=== PATIENT | female | born 1930 | race Caucasian/White ===

== ENCOUNTER → 2019-11-01 | Outpatient (CLI) | payer MEDICARE ==
[~2019-11-01] MED LIST: APAP650 PO; ASPIRIN325 PO; CALCIUM 600 +1 EAC1 PO; CARDIZEM LA180 M1 PO; CARVEDILOL12.5 MG PO; CARVEDILOL25 MG PO; CENTRUM SILVER1 EAC4 PO; DIFLUCAN200 MG PO; FISH OIL 1,001000 M2 PO; FLECAINIDE ACE100 MG PO; FLECAINIDE ACET50 M1 PO; LAMISIL250 MG; LISINOPRIL-HCT1 EAC1 PO; LISINOPRIL-HCT1 EACH PO; OMEGA-31000 M1 PO; ONDANSETRON HCL4 M2 PO; OXYCODONE HCL 55 MG PO; TRIAMCINOLONE A80 G2 TOP; VITAMIN D2000 UNIT PO; VITAMIN E PO; VITAMIN E400 UNIT PO; VITAMINC500 PO; XARELTO10 MG PO; XARELTO15 MG PO; ZANTAC 150MG T150 MG PO
--- NOTE | ~2019-11-01 | CARD ---
[address] [address] CARDIAC CATH REPORT Name: MOIRA GARCIA Room: [facility]#: [id number] Admission: 11/01/19 Attend Phys: Sd Osorio MD Discharge: Date of : 34 Report #: [id number] THIS REPORT FOR: //name// cc: Daniel Nguyễn MD, Daljeet MD ~ THIS REPORT FOR: //name// CC: Daniel Osorio DATE OF SERVICE: 11/01/2019 PROCEDURE: DC cardioversion. INDICATION: Persistent atrial fibrillation. DESCRIPTION OF PROCEDURE: After informed consent was obtained, the patient was given intravenous Versed and fentanyl for moderate sedation. Once the patient was adequately sedated, she received a single biphasic shock of 300 joules converting to normal sinus rhythm. The patient tolerated the procedure well and without complication. IMPRESSION: 1. Persistent atrial fibrillation. 2. Successful direct current cardioversion to normal sinus rhythm. By: [id number] Renata Osorio MD, FACC /nt
[2019-11-01 10:31] VITALS: BP 171/81
[2019-11-01 10:39] VITALS: BP 179/81
[2019-11-01 10:46] VITALS: BP 179/81
[2019-11-01 10:51] VITALS: BP 153/64
== END | disposition home or self-care (01) ==
LOC: M.CL 10:04
DX: I48.19 Other persistent atrial fibrillation (principal); R00.1 Bradycardia, unspecified; Z98.890 Other specified postprocedural states; Z79.899 Other long term (current) drug therapy; Z87.01 Personal history of pneumonia (recurrent); Z88.8 Allergy status to other drugs, medicaments and biological substances

== ENCOUNTER 2019-11-03 10:26 | Inpatient (IN) | payer MEDICARE ==
[~2019-11-03] VITALS: Ht 154.9 cm; Wt 80.1 kg
[~2019-11-03 10:26] MED LIST changes: -CARDIZEM LA180 M1 PO; -FLECAINIDE ACE100 MG PO; -XARELTO15 MG PO
[2019-11-03 10:33] VITALS: BP 112/89
[2019-11-03] MEDS ORDERED: CARDIZEM LA180 M1 PO (10:54)
[2019-11-03] MEDS ORDERED: FLECAINIDE ACE100 MG PO (10:56)
[2019-11-03 11:06] LABS: HEMATOCRIT 36.5 % (37.0-47.0); MCH 29.6 pg (26.0-34.0); MCHC 32.8 g/dL (28.0-37.0); MCV 90.1 fL (80.0-100.0); MPV 7.9 fl. (7.2-11.1); NUCLEATED RBCS 0 /100WBC; PLATELET COUNT* 323 thou/uL (150-400); RBC 4.05 mil/uL (4.20-5.00); RDW-CV 13.7 % (10.5-14.5); WBC 21.8 thou/uL (4.0-11.0)
[2019-11-03 11:14] LABS: APTT 34.8 Seconds (25.0-31.3); INR 1.2; PROTIME 12.5 Seconds (9.20-11.50)
[2019-11-03 11:16] LABS: POTASSIUM 3.9 mmol/L (3.5-5.1)
[2019-11-03 11:28] LABS: ABSOLUTE LYMPHOCYTES 1.7 thou/uL (0.8-5.3); ABSOLUTE MONOCYTES 1.5 thou/uL (0.0-1.2); ABSOLUTE NEUTROPHILS 18.5 thou/uL (1.6-8.1); ALBUMIN 3.5 g/dL (3.4-5.0); ANISOCYTOSIS 1+; MAGNESIUM 1.4 mg/dL (1.8-2.4); PLATELET ESTIMATE ADEQUATE; POIKILOCYTOSIS 1+; TOTAL BILIRUBIN 0.7 mg/dL (<0.1-1.0); TOTAL PROTEIN 7.2 g/dL (6.4-8.2)
[2019-11-03 16:47] VITALS: BP 127/71
[2019-11-03 17:44] VITALS: BP 137/72
[2019-11-03 20:00] VITALS: BP 124/49
[2019-11-03] MEDS ORDERED: XARELTO15 MG PO (21:18)
[2019-11-04] VITALS (30 sets, daily range): BP systolic 75–174; BP diastolic 30–140
[2019-11-04 04:43] LABS: HEMATOCRIT 33.6 % (37.0-47.0); HEMOGLOBIN 11.2 gm/dL (12.0-15.0); MCH 29.8 pg (26.0-34.0); MCHC 33.3 g/dL (28.0-37.0); MCV 89.3 fL (80.0-100.0); MPV 8.3 fl. (7.2-11.1); RBC 3.76 mil/uL (4.20-5.00); RDW-CV 14.1 % (10.5-14.5); WBC 18.1 thou/uL (4.0-11.0)
[2019-11-04 05:07] LABS: ALBUMIN 3.1 g/dL (3.4-5.0); CALCIUM 8.9 mg/dL (8.5-10.1); CREATININE 1.1 mg/dL (0.6-1.3); MAGNESIUM 1.6 mg/dL (1.8-2.4); POTASSIUM 3.3 mmol/L (3.5-5.1); TOTAL BILIRUBIN 0.4 mg/dL (<0.1-1.0); TOTAL PROTEIN 6.8 g/dL (6.4-8.2)
--- NOTE | 2019-11-04 12:16 | EKG ---
[place] [address] ELECTROCARDIOGRAM REPORT Name: MOIRA GARCIA Room: [address] IN [facility]#: [id number] Admission: 11/03/19 Attend Phys: Shannan Carroll, Discharge: Date of : 34 Date of Service: 11/03/19 1032 Report #: [id number] THIS REPORT FOR: //name// [facility] ED Test Date: 2019-11-03 Test Time: 10:32:16 Pat Name: MOIRA GARCIA Department: Room: [facility] Gender: F Button Pusher: [facility] : 1930 Requested By: Scot Garsia Order Number: [id number] MD: Duc Bernardo Measurements Intervals [place] Rate: 77 P: 176 UT: 260 QRS: 262 QRSD: 158 T: 59 QT: 439 QTc: 497 Interpretive Statements Sinus or ectopic atrial rhythm prolonged pr interval LBBB left axis Electronically Signed On 11-04-2019 12:15:48 DIGITAL PRODUCT MANAGER by Duc Bernardo [email or web address] <ELECTRONICALLY SIGNED> By: Duc Bernardo MD, [facility] 11/04/19 1215 1032 1032 Duc Bernardo MD, [facility] /EPI
--- NOTE | 2019-11-04 12:17 | EKG ---
[place] [address] ELECTROCARDIOGRAM REPORT Name: MOIRA GARCIA Room: [address] ADM IN [facility]#: [id number] Admission: 11/03/19 Attend Phys: Shannan Carroll, Discharge: Date of : 34 Date of Service: 11/03/19 1036 Report #: [id number] THIS REPORT FOR: //name// [facility] ED Test Date: 2019-11-03 Test Time: 10:36:06 Pat Name: MOIRA GARCIA Department: Room: [facility] Gender: F Corporate Webmaster: [facility] : 1930 Requested By: Scot Garsia Order Number: [id number] MD: Duc Bernardo Measurements Intervals [place] Rate: 74 P: 36 ND: 248 QRS: -81 QRSD: 162 T: 113 QT: 461 QTc: 512 Interpretive Statements Sinus rhythm Prolonged ND interval left axis LBBB Electronically Signed On 11-04-2019 12:16:47 COURSEWARE DEVELOPER by Duc Bernardo [email or web address] <ELECTRONICALLY SIGNED> By: Duc Bernardo MD, [facility] 11/04/19 1216 1036 1036 Duc Bernardo MD, [facility] /EPI
[2019-11-04 16:44] LABS: ALBUMIN 2.6 g/dL (3.4-5.0); CREATININE 1.8 mg/dL (0.6-1.3); MAGNESIUM 1.9 mg/dL (1.8-2.4); TOTAL BILIRUBIN 0.3 mg/dL (<0.1-1.0); TOTAL PROTEIN 5.6 g/dL (6.4-8.2)
[2019-11-04 16:45] LABS: CALCIUM 10.9 mg/dL (8.5-10.1); POTASSIUM 4.6 mmol/L (3.5-5.1)
[2019-11-05] VITALS (59 sets, daily range): BP systolic 67–144; BP diastolic 35–98
[2019-11-05 04:07] LABS: GLYCOHEMOGLOBIN (HGB A1C) 6.6 % (4.8-5.6)
--- NOTE | 2019-11-05 13:37 | 2DMMODE ---
[place] [address] 2 D/M-MODE ECHOCARDIOGRAM Name: MOIRA GARCIA Room: [address] IN [facility]#: [id number] Admission: 11/03/19 Attend Phys: Shannan Carroll, Discharge: Date of : 34 Date of Service: 11/05/19 1336 Report #: [id number] THIS REPORT FOR: cc: Daniel Nguyễn MD, Daljeet MD Blick,Duc Garcia MD [facility] ~ ADDENDUM APPROVED REPORT Study performed: 11/05/2019 09:57:06 EXAM: Limited 2D Echocardiogram Patient Location: In-Patient Room #: 001 Status: routine BSA: 1.76 HR: 68 bpm BP: 126/49 mmHg Rhythm: NSR Other Information Study Quality: Good Indications Re evaluate EF Left Ventricle The left ventricle is normal size. paradoxical septal motion consistent with a LBBB Mild concentric left ventricular hypertrophy. The left ventricular systolic function is normal. The left ventricular ejection fraction is within the normal range. LVEF is 50-55%. Right Ventricle The right ventricle is normal size. The right ventricular systolic function is normal. Atria Left atrium is moderately dilated. The right atrium size is normal. Aortic Valve Mild aortic valve sclerosis. Mitral Valve There is mitral annular calcification. [address] [address] 2 D/M-MODE ECHOCARDIOGRAM Name: MOIRA GARCIA Room: [address] IN M.R.#: [id number] Admission: 11/03/19 Attend Phys: Shannan Carroll, Discharge: Date of : 34 Date of Service: 11/05/19 1336 Report #: [id number] Tricuspid Valve The tricuspid valve is normal in structure. Pulmonic Valve The pulmonary valve is normal in structure. Great Vessels The aortic root is normal in size. Pericardium There is no pericardial effusion. Left pleural effusion. <Conclusion> Mild concentric left ventricular hypertrophy. LVEF is 50-55%. Left atrium is moderately dilated. Mild aortic valve sclerosis. . <ELECTRONICALLY SIGNED> By: Duc Bernardo MD, FACC 11/05/19 1336 35 35 Duc Bernardo MD, FACC /INF
--- NOTE | 2019-11-05 15:25 | EKG ---
[place] [address] ELECTROCARDIOGRAM REPORT Name: MOIRA GARCIA Room: [address] ADM IN ..#: [id number] Admission: 11/03/19 Attend Phys: Shannan Carroll, Discharge: Date of : 34 Date of Service: 11/04/19 1527 Report #: [id number] THIS REPORT FOR: //name// [facility] Test Date: 2019-11-04 Test Time: 15:27:24 Pat Name: MOIRA GARCIA Department: Room: [facility] Gender: F Publications Production Supervisor: UNKNOWN : 1930 Requested By: Son Mccormick Order Number: [id number] Marybeth MD: Duc Bernardo Measurements Intervals [place] Rate: 39 P: [place]: QRS: -81 QRSD: 154 T: 147 QT: 654 QTc: 527 Interpretive Statements Junctional rhythm with pac left axis LBBB Compared to ECG 11/03/2019 10:36:06 Junctional rhythm now present Sinus rhythm no longer present Electronically Signed On 11-05-2019 15:24:55 PSYCHOLOGY PHYSICIAN by Duc Bernardo [email or web address] <ELECTRONICALLY SIGNED> By: Duc Bernardo MD, [facility] 11/05/19 1524 1527 1527 Duc Bernardo MD, [facility] /EPI
--- NOTE | 2019-11-05 17:21 | CON ---
[address] [address] CONSULTATION Name: MOIRA GARCIA Room: [address] IN M.R.#: [id number] Admission: 11/03/19 Attend Phys: Shannan Carroll MD Discharge: Date of : 34 Report #: [id number] THIS REPORT FOR: //name// cc: Daniel Nguyễn MD, Daljeet MD ~ THIS REPORT FOR: //name// CC: Daniel Osorio DATE OF SERVICE: 11/05/2019 CARDIOLOGY CONSULTATION HISTORY OF PRESENT ILLNESS: The patient is an 88-year-old white female who I was asked to see in the hospital today after she was noted to be bradycardic. The history was obtained from the patient as well as some old records. The patient has a history of paroxysmal atrial fibrillation. She has been followed by my partner, Dr. Osorio. Because of recurrent atrial fibrillation, she was actually cardioverted as an outpatient 5 days ago here at [facility] by Dr. Osorio. He apparently started her on Xarelto for anticoagulation and flecainide. She was at home last . However, that night, she could sleep and felt short of breath. The next day, she called my office and apparently Dr. Osorio's nurse told the patient to increase flecainide to 100 mg twice a day. However, she continued not to feel well. She felt lightheaded. She finally went to the Emergency Room 2 days ago. She noted some chest discomfort that went into her back. She felt short of breath. She was admitted to [facility] 2 days ago. On admission, her ECG showed a sinus rhythm with first-degree AV block. On the monitor, the patient developed bradycardia with what appears to be sinus bradycardia, PACs, long first-degree AV block. She also had episodes of junctional rhythm with rates down into the 30s. Because of this, the patient was transferred to the ICU yesterday. She had occasional PVCs. Because of low blood pressure, she was started on dopamine. I was asked to see her for further evaluation and treatment. She denied any syncopal spells or edema. PAST MEDICAL HISTORY: She has had tonsillectomy, mastoid surgery, cataract extraction, hip surgery. She has a history of hypertension, umbilical hernia repair. MEDICATIONS: On admission 2 days ago included flecainide 100 mg twice a day, diltiazem CD 180 mg a day, ranitidine 150 mg as needed, carvedilol 25 mg twice a day, lisinopril HCT 20/12.5 a [place] [address] CONSULTATION Name: MOIRA GARCIA Room: [address] IN ..#: [id number] Admission: 11/03/19 Attend Phys: Shannan Carroll MD Discharge: Date of : 34 Report #: [id number] ALLERGIES: She has previous intolerance to Lamisil. FAMILY HISTORY: Negative for heart disease. SOCIAL HISTORY: She is . [place]. No smoking or alcohol abuse. REVIEW OF SYSTEMS: She was told in the past she may have had a stroke when she had some confusion. She has no history of asthma, liver disease, kidney disease, cancer, chronic skin condition. She does have occasional edema. No chronic psychiatric illness. PHYSICAL EXAMINATION: GENERAL: Reveal an elderly, frail appearing female who appeared in no distress, lying in bed. VITAL SIGNS: She had a blood pressure of 110/60, pulse 70. She is afebrile. HEENT: She was anicteric. Conjunctivae are pink. Mucous membranes appear dry. NECK: Veins are nondistended. CHEST: Clear to auscultation. CARDIOVASCULAR: Regular rate and rhythm, no murmur. ABDOMEN: Soft. EXTREMITIES: Had no edema. Dorsalis pedis pulse cannot be palpated. SKIN: Cool and dry. NEUROLOGIC: Nonfocal. LABORATORY AND DIAGNOSTIC DATA: Her ECG on admission 2 days ago showed sinus rhythm, first degree AV block, left axis deviation and a left bundle branch block. Her workup included a chest x-ray on admission that showed atelectasis. CT scan of the chest using a PE protocol showed no pulmonary embolus, small effusions. CT scan of the head without contrast because of confusion showed poor study. No acute abnormalities. Her laboratory: Sodium 136, BUN 38, creatinine 1.8, glucose 309, SGOT 151, SGPT 89, bilirubin 0.3, alkaline phosphatase 73, albumin 2.6. Troponin 0.22, it was 0.5 two days ago. BNP 17,939. Glycosylated hemoglobin 6.6 consistent with glucose intolerance. White blood cell count 18.1, hemoglobin 11.2, hematocrit 33.6. IMPRESSION AND RECOMMENDATIONS: 1. Sinus bradycardia. I would recommend stopping diltiazem and Cardizem. If persist, she would require pacemaker. 2. Paroxysmal atrial fibrillation. The patient now on flecainide. No evidence of clinical recurrences after increasing the dose to 100 mg twice a day. Because of chronic kidney disease, I would consider decreasing the dose to 50 mg. 3. Hypertension. The patient on calcium colton and beta colton. 4. Obesity. 5. [place] [address] CONSULTATION Name: MOIRA GARCIA Room: [address] IN .R.#: [id number] Admission: 11/03/19 Attend Phys: Shannan Carroll MD Discharge: Date of : 34 Report #: [id number] 6. Glucose intolerance. Suspect diabetes. 7. Elevated liver function studies. <ELECTRONICALLY SIGNED> By: Duc Bernardo MD, FACC 11/05/19 1721 0801 1023Dsaray Bernardo MD, FACC /nt
[2019-11-06] VITALS (23 sets, daily range): BP systolic 113–176; BP diastolic 56–99
[2019-11-06 03:55] LABS: HEMATOCRIT 32.9 % (37.0-47.0); HEMOGLOBIN 10.9 gm/dL (12.0-15.0); MCH 29.8 pg (26.0-34.0); MCV 90.1 fL (80.0-100.0); MPV 8.1 fl. (7.2-11.1); RBC 3.65 mil/uL (4.20-5.00); WBC 11.5 thou/uL (4.0-11.0)
[2019-11-06 04:00] LABS: ALBUMIN 2.8 g/dL (3.4-5.0); CREATININE 1.2 mg/dL (0.6-1.3); POTASSIUM 3.5 mmol/L (3.5-5.1); TOTAL BILIRUBIN 0.2 mg/dL (<0.1-1.0); TOTAL PROTEIN 6.3 g/dL (6.4-8.2)
[2019-11-06 04:01] LABS: CALCIUM 8.8 mg/dL (8.5-10.1)
[2019-11-06 05:48] LABS: pH 7.318 (7.340-7.450)
[2019-11-06 05:49] LABS: BE 0.1 mmol/L (-2 to +3)
[2019-11-06 05:53] LABS: PCO2 53.9 mmHg (35.0-45.0); PO2 28.8 mmHg (75.0-100.0)
--- NOTE | 2019-11-06 16:46 | EKG ---
[place] [address] ELECTROCARDIOGRAM REPORT Name: MOIRA GARCIA Room: [address] IN ..#: [id number] Admission: 11/03/19 Attend Phys: Shannan Carroll, Discharge: Date of : 34 Date of Service: 11/06/19 0835 Report #: [id number] THIS REPORT FOR: //name// [facility] Test Date: 2019-11-06 Test Time: 08:35:26 Pat Name: MOIRA GARCIA Department: Room: [address] Gender: F Office Associate: : 1930 Requested By: Duc Bernardo Order Number: [id number] Reading MD: Duc Bernardo Measurements Intervals [place] Rate: 74 P: 96 [place]: 245 QRS: -83 QRSD: 156 T: 99 QT: 439 QTc: 487 Interpretive Statements Sinus rhythm with pac's Prolonged [place] interval LBBB left axis Compared to ECG 11/04/2019 15:27:24 Junctional rhythm no longer present Electronically Signed On 11-06-2019 16:45:37 STRAPPER OPERATOR by Duc Bernardo [email or web address] <ELECTRONICALLY SIGNED> By: Duc Bernardo MD, [facility] 11/06/19 1645 0835 0835 Duc Bernardo MD, [facility] /EPI
[2019-11-07 03:43] LABS: HEMATOCRIT 33.9 % (37.0-47.0); HEMOGLOBIN 11.4 gm/dL (12.0-15.0); MCH 30.2 pg (26.0-34.0); MCHC 33.6 g/dL (28.0-37.0); MCV 89.8 fL (80.0-100.0); MPV 7.9 fl. (7.2-11.1); RBC 3.78 mil/uL (4.20-5.00); RDW-CV 13.8 % (10.5-14.5); WBC 10.6 thou/uL (4.0-11.0)
[2019-11-07 03:52] LABS: ALBUMIN 2.7 g/dL (3.4-5.0); CALCIUM 8.4 mg/dL (8.5-10.1); CREATININE 0.9 mg/dL (0.6-1.3); MAGNESIUM 1.7 mg/dL (1.8-2.4); POTASSIUM 3.4 mmol/L (3.5-5.1); TOTAL BILIRUBIN 0.3 mg/dL (<0.1-1.0); TOTAL PROTEIN 6.1 g/dL (6.4-8.2)
[2019-11-07 04:18] VITALS: BP 132/66
[2019-11-07 07:32] VITALS: BP 164/83
[2019-11-07 12:48] VITALS: BP 147/85
[2019-11-07 18:10] VITALS: BP 114/70
[2019-11-07 20:00] VITALS: BP 127/68
[2019-11-08] VITALS (7 sets, daily range): BP systolic 139–153; BP diastolic 71–86
[2019-11-08 04:58] LABS: HEMATOCRIT 35.2 % (37.0-47.0); HEMOGLOBIN 11.6 gm/dL (12.0-15.0); MCH 29.8 pg (26.0-34.0); MCHC 33.1 g/dL (28.0-37.0); MCV 90.1 fL (80.0-100.0); MPV 7.8 fl. (7.2-11.1); RBC 3.91 mil/uL (4.20-5.00); RDW-CV 13.9 % (10.5-14.5); WBC 10.5 thou/uL (4.0-11.0)
[2019-11-08 05:26] LABS: CALCIUM 8.1 mg/dL (8.5-10.1); CREATININE 0.7 mg/dL (0.6-1.3); MAGNESIUM 1.9 mg/dL (1.8-2.4); POTASSIUM 4.2 mmol/L (3.5-5.1)
[2019-11-09] VITALS (7 sets, daily range): BP systolic 126–186; BP diastolic 64–117
[2019-11-10 04:18] VITALS: BP 153/82
[2019-11-10] MEDS ORDERED: LISINOPRIL20 MG PO (10:48)
[2019-11-10] MEDS ORDERED: GLUCOPHAGE500 MG PO (10:48)
[2019-11-10] MEDS ORDERED: PEPCID20 MG PO (10:48)
[2019-11-10] MEDS ORDERED: FELODIPINE 5 MG5 M1 PO (10:48)
[2019-11-10] MEDS ORDERED: FISH OIL 1,001000 M2 PO (10:48)
[2019-11-10] MEDS ORDERED: PROAIR HFA8.5 GM INH (10:50)
[2019-11-10] MEDS ORDERED: LASIX 40 MG TAB40 MG PO (10:51)
[2019-11-10 11:57] VITALS: BP 153/74
[2019-11-12 11:40] VITALS: BP 186/117
== END 2019-11-10 17:45 | disposition home health service (06) | DRG 291 ==
LOC: M.ERS 10:26 → M.TBA-ER 13:22 → M.ICU 13:22 → M.2W 13:22 → M.ICU 11-04 15:45 → M.2W 11-07 12:19
PROVIDERS: Family Medicine; Internal Medicine; ADMIT Internal Medicine
DX: I13.0 Hypertensive heart and chronic kidney disease with heart failure and stage 1 through stage 4 chronic kidney disease, or unspecified chronic kidney disease (principal); J18.9 Pneumonia, unspecified organism; J96.01 Acute respiratory failure with hypoxia; I50.31 Acute diastolic (congestive) heart failure; G92 Toxic encephalopathy; R65.11 Systemic inflammatory response syndrome (SIRS) of non-infectious origin with acute organ dysfunction; R00.1 Bradycardia, unspecified; E11.9 Type 2 diabetes mellitus without complications; E66.9 Obesity, unspecified; I48.0 Paroxysmal atrial fibrillation; M19.90 Unspecified osteoarthritis, unspecified site; E11.22 Type 2 diabetes mellitus with diabetic chronic kidney disease; N18.9 Chronic kidney disease, unspecified; Z79.899 Other long term (current) drug therapy; Z68.33 Body mass index [BMI] 33.0-33.9, adult; Z79.01 Long term (current) use of anticoagulants; Z88.8 Allergy status to other drugs, medicaments and biological substances

== ENCOUNTER → 2019-11-19 | Outpatient (CLI) | payer MEDICARE ==
[~2019-11-19] MED LIST changes: +CARDIZEM LA180 M1 PO; +FELODIPINE 5 MG5 M1 PO; +FLECAINIDE ACE100 MG PO; +GLUCOPHAGE500 MG PO; +LASIX 40 MG TAB40 MG PO; +LISINOPRIL20 MG PO; +PEPCID20 MG PO; +PROAIR HFA8.5 GM INH; +XARELTO15 MG PO
[2019-11-19 13:56] LABS: CALCIUM 8.9 mg/dL (8.5-10.1); CREATININE 0.8 mg/dL (0.6-1.3); POTASSIUM 3.1 mmol/L (3.5-5.1)
== END ==
LOC: M.LAB 13:11
PROVIDERS: Registered Nurse
DX: I48.0 Paroxysmal atrial fibrillation (principal)

== ENCOUNTER → 2019-11-23 | Outpatient (CLI) | payer MEDICARE ==
[2019-11-23 12:59] LABS: CALCIUM 9.3 mg/dL (8.5-10.1); CREATININE 0.8 mg/dL (0.6-1.3); POTASSIUM 3.8 mmol/L (3.5-5.1)
== END ==
LOC: M.LAB 12:19
PROVIDERS: Registered Nurse
DX: I48.0 Paroxysmal atrial fibrillation (principal)